=== PATIENT | male | born 1955 | race Caucasian/White ===

== ENCOUNTER 2018-02-02 08:51 | Emergency (ER) | payer OTHER ==
[2018-02-02 09:49] LABS: BASOPHILS # (AUTO) 0.1 10^3/uL (0.0-0.1); BASOPHILS % (AUTO) 1.2 %; EOSINOPHILS # (AUTO) 0.2 10^3/uL (0.0-0.7); EOSINOPHILS % (AUTO) 3.5 %; HGB - HEMOGLOBIN 14.7 g/dL (14.0-18.0); LYMPHOCYTES # (AUTO) 1.1 10^3/uL (1.5-3.5); LYMPHOCYTES % (AUTO) 18.2 %; MEAN CORPUSCULAR HGB CONC 34.7 g/dL (32.0-36.0); MEAN CORPUSCULAR VOLUME 89.5 fL (80.0-94.0); MEAN PLATELET VOLUME 7.3 fL (7.4-11.4); MONOCYTES # (AUTO) 0.6 10^3/uL (0.0-1.0); MONOCYTES % (AUTO) 10.5 %; NEUTROPHILS # (AUTO) 3.9 10^3/uL (1.5-6.6); NEUTROPHILS % (AUTO) 66.6 %; PLT - PLATELET COUNT 212 10^3/uL (130-450); RED BLOOD COUNT 4.75 10^6/uL (4.70-6.10); RED CELL DISTRIBUTION WIDTH 13.4 % (12.0-15.0); WHITE BLOOD COUNT 5.9 x10^3/uL (4.8-10.8)
[2018-02-02 10:02] LABS: ALBUMIN 4.2 g/dL (3.2-5.5); ALBUMIN/GLOBULIN RATIO 1.3 (1.0-2.2); CALCIUM 9.1 mg/dL (8.5-10.3); CREATININE 0.8 mg/dL (0.6-1.2); TOTAL PROTEIN 7.5 g/dL (6.7-8.2)
--- NOTE | 2018-02-02 10:04 | XRAY Report ---
Reason: cp Procedure Date: 02/02/2018 Accession Number: [id number] / [id number] Procedure: XR - Chest 1 View X-Ray CPT Code: 25322 FULL RESULT: EXAM: CHEST RADIOGRAPHY EXAM DATE: 02/02/2018 09:42 AM. CLINICAL HISTORY: Rapid heart rate for 5 days, left-sided arm numbness for a day. COMPARISON: None. TECHNIQUE: 1 view. FINDINGS: Lungs/Pleura: No focal opacities evident. No pleural effusion. No pneumothorax. Mediastinum: Within exam limitations, the cardiomediastinal contour is normal. Other: None. IMPRESSION: Normal single view chest. RADIA
[2018-02-02] MEDS ORDERED: SODIUM CHLORIDE 0.9% 1,000 ML IV ONE (10:14)
--- NOTE | 2018-02-02 10:16 | ED Physician Documentation ---
PD HPI CHEST PAIN - Stated complaint Stated Complaint: CP/L ARM NUMBNESS - Chief complaint Chief Complaint: Cardiac - History obtained from History obtained from: Patient - History of Present Illness Timing - onset: How many days ago (5) Timing - onset during: Rest Timing - details: Intermittant Quality: Dull Location: Substernal Associated symptoms: Nausea (Briefly this morning.). No: Shortness of air Similar symptoms before: Has not had sx before - Additional information Additional information: The patient is a 62-year-old male who presents with history of dull anterior chest aching intermittently for the past 5 days. Episodes last for a few minutes at a time, associated with palpitations that he describes as rapid heart rate. He denies associated shortness of breath, vomiting, or diaphoresis. He did have a five-minute episode of nausea this morning associated with his symptoms, and he had a brief episode of numbness in his left elbow. Although he denies diaphoresis, he reports having night sweats. Cardiac risk factors are negative for cigarette smoking, diabetes, hypertension, hyperlipidemia, or family history of early IA. Review of Systems Constitutional: reports: Sweats ("nightsweats"). denies: Fever, Fatigue Eyes: denies: Irritation Ears: denies: Tinnitus/ringing Nose: denies: Congestion Throat: denies: Sore throat Cardiac: reports: Chest pain / pressure, Palpitations Respiratory: denies: Dyspnea, Cough GI: reports: Nausea (Briefly this morning, but not currently.). denies: Abdominal Pain : denies: Dysuria Skin: denies: Rash Musculoskeletal: denies: Back pain, Extremity swelling Neurologic: denies: Focal weakness, Numbness, Headache PD PAST MEDICAL HISTORY - Past Medical History Cardiovascular: None Respiratory: None Neuro: None Endocrine/Autoimmune: None - Past Surgical History Past Surgical History: No - Present Medications Home Medications: Ambulatory Orders Medication Instructions Recorded Confirmed Aspirin 02/02/18 Multivitamin [Multiple Vitamins] 02/02/18 - Allergies Allergies/Adverse Reactions: Allergies Allergy/AdvReac Type Severity Reaction Status Date / Time No Known Drug Allergies Allergy Verified 02/02/18 08:59 - Social History Does the pt smoke?: No Smoking Status: Never smoker Does the pt drink ETOH?: Yes Does the pt have substance abuse?: No - Immunizations Immunizations are current?: Yes PD ED PE NORMAL - Vitals Vital signs reviewed: Yes (normal) - General General: Alert and oriented X 3, Well developed/nourished - HEENT HEENT: Atraumatic, EOMI, Pharynx benign - Neck Neck: No adenopathy, No JVD - Cardiac Cardiac: RRR, No murmur - Respiratory Respiratory: No respiratory distress, Clear bilaterally - Abdomen Abdomen: Soft, Non tender - Back Back: No CVA TTP - Derm Derm: No rash - Extremities Extremities: No edema, No calf tenderness / cord - Neuro Neuro: Alert and oriented X 3, No motor deficit, No sensory deficit Results - Vitals Vitals: Oxygen O2 Source Room air - EKG (time done) 08:58 Rate: Rate (enter#) (81) Rhythm: NSR [place]: Normal Intervals: Normal AR Ischemia: Q waves (in inferior leads II, III, and aVF, 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.) Compare to prior EKG: Old EKG unavailable - Labs Labs: Laboratory Tests 02/02/18 02/02/18 02/02/18 09:30 09:30 09:30 WBC 5.9 RBC 4.75 Hgb 14.7 Hct 42.5 MCV 89.5 MCH 31.0 MCHC 34.7 RDW 13.4 Plt Count 212 MPV 7.3 L Neut # (Auto) 3.9 Lymph # (Auto) 1.1 L [place] # (Auto) 0.6 Eos # (Auto) 0.2 Baso # (Auto) 0.1 Absolute Nucleated RBC 0.00 Nucleated RBC % 0.0 Sodium 138 Potassium 3.5 Chloride 103 Carbon Dioxide 28 Anion Gap 7.0 BUN 13 Creatinine 0.8 Estimated GFR (MDRD) 98 Glucose 93 Calcium 9.1 Total Bilirubin 1.0 AST 31 ALT 31 Alkaline Phosphatase 50 Troponin I < 0.04 Total Protein 7.5 Albumin 4.2 Globulin 3.3 Albumin/Globulin Ratio 1.3 Lipase 29 TSH 02/02/18 09:30 WBC RBC Hgb Hct MCV MCH MCHC RDW Plt Count MPV Neut # (Auto) Lymph # (Auto) [place] # (Auto) Eos # (Auto) Baso # (Auto) Absolute Nucleated RBC Nucleated RBC % Sodium Potassium Chloride Carbon Dioxide Anion Gap BUN Creatinine Estimated GFR (MDRD) Glucose Calcium Total Bilirubin AST ALT Alkaline Phosphatase Troponin I Total Protein Albumin Globulin Albumin/Globulin Ratio Lipase TSH 3.88 - Rads (name of study) CXR Radiology: Prelim report reviewed, EMP read contemporaneously, See rad report (Normal single view chest.) PD MEDICAL DECISION MAKING - ED course Complexity details: reviewed results, re-evaluated patient, considered differential, d/w patient, d/w family ED course: The patient's presentation is suspicious for intermittent tachycardia, although there is no rhythm disturbance noted on cardiac monitoring while in the emergency department. Ischemic heart disease is considered, but his presentation would be atypical for that diagnosis. There is no clinical evidence to suggest pulmonary etiology, such as congestive heart failure, pneumonia, or pulmonary embolus. Electrocardiogram, chest x-ray, and chemistry panel, including troponin and TSH, are all unremarkable. Treatment in the emergency department included administration of normal saline 1 L IV. The patient remained asymptomatic while in the emergency department. I discussed with him and his son the results of his workup, the importance of outpatient follow-up, as well as potentially worrisome signs or symptoms that should prompt reevaluation in the emergency department. I discussed with him the possibility of a outpatient cardiac monitoring device that he may consider discussing with primary physician. Departure - Departure Disposition: 01 Home, Self Care Clinical Impression: Atypical chest pain, Heart palpitations Condition: Stable Instructions: ED Chest Pain Atypical Unkn Cause, ED Palpitations Follow-Up: CYNDI SANCHEZ MD [Primary Care Provider] - Comments: Follow-up with your primary physician within 1-2 weeks. Call to schedule appointment. You may want to discuss outpatient cardiac monitoring. Return to the emergency department if you develop recurrent or increasing chest pain, shortness of breath, or otherwise worsening symptoms. Discharge Date/Time: 02/02/18 13:35
[2018-02-02 13:35] VITALS: BP 122/86
== END 2018-02-02 13:35 | disposition home or self-care (01) ==
LOC: ED 08:51
DX: R07.89 Other chest pain (principal); R00.2 Palpitations
CPT/HCPCS: 36415; 71045; 80053; 83690; 84443; 84484; 85025; 93005; 96360; 96361; 99284

== ENCOUNTER 2020-10-27 12:16 | Outpatient (CLI) | payer MEDICARE, OTHER | END 2020-10-27 23:59 | disposition home or self-care (01) | LOC: LAB.N 12:16 | PROVIDERS: ATTEND Physician Assistant Medical | DX: R10.0 Acute abdomen (principal) | CPT/HCPCS: 87086 ==

== ENCOUNTER 2020-10-27 14:08 | Emergency (ER) | payer MEDICARE, OTHER ==
[2020-10-27 14:44] LABS: BASOPHILS # (AUTO) 0.1 10^3/uL (0.0-0.1); BASOPHILS % (AUTO) 0.8 %; EOSINOPHILS # (AUTO) 0.1 10^3/uL (0.0-0.7); EOSINOPHILS % (AUTO) 1.3 %; HCT - HEMATOCRIT 44.8 % (42.0-52.0); HGB - HEMOGLOBIN 14.7 g/dL (14.0-18.0); LYMPHOCYTES # (AUTO) 1.6 10^3/uL (1.5-3.5); LYMPHOCYTES % (AUTO) 14.8 %; MEAN CORPUSCULAR HEMOGLOBIN 30.8 pg (27.0-31.0); MEAN CORPUSCULAR HGB CONC 32.8 g/dL (32.0-36.0); MEAN CORPUSCULAR VOLUME 93.7 fL (80.0-94.0); MEAN PLATELET VOLUME 9.1 fL (7.4-11.4); MONOCYTES % (AUTO) 9.5 %; NEUTROPHILS # (AUTO) 7.8 10^3/uL (1.5-6.6); NEUTROPHILS % (AUTO) 73.3 %; PLT - PLATELET COUNT 214 10^3/uL (130-450); RED BLOOD COUNT 4.78 10^6/uL (4.70-6.10); RED CELL DISTRIBUTION WIDTH 12.6 % (12.0-15.0); WHITE BLOOD COUNT 10.6 x10^3/uL (4.8-10.8)
[2020-10-27 14:59] LABS: ALBUMIN 4.5 g/dL (3.2-5.5); ALBUMIN/GLOBULIN RATIO 1.3 (1.0-2.2); BILIRUBIN,TOTAL 0.7 mg/dL (0.2-1.0); CALCIUM 9.6 mg/dL (8.5-10.3); CREATININE 0.8 mg/dL (0.6-1.2); POTASSIUM 4.4 mmol/L (3.5-5.0); TOTAL PROTEIN 8.1 g/dL (6.7-8.2)
--- NOTE | 2020-10-27 17:15 | ED Physician Documentation ---
PD HPI ABD PAIN - Stated complaint Stated Complaint: ABD PX - Chief complaint Chief Complaint: Abd Pain - History obtained from History obtained from: Patient - History of Present Illness Timing - onset: How many days ago (6) Timing - duration: Days (6) - Additional information Additional information: Patient is a 65-year-old male who presents to the emergency department suprapubic pain for the past 6 days. Feels better after urination, worse when he has to urinate. No fevers. No chills. No nausea or vomiting. He went to the walk-in clinic today and was told that there was blood in his urine and they sent him here for evaluation. Patient is currently asymptomatic. No history of renal stones. Review of Systems Constitutional: denies: Fever, Chills Nose: denies: Rhinorrhea / runny nose, Congestion Throat: denies: Sore throat GI: denies: Vomiting, Diarrhea, Hematemesis, Bloody / black stool Skin: denies: Rash Musculoskeletal: denies: Neck pain, Back pain Neurologic: denies: Headache PD PAST MEDICAL HISTORY - Past Medical History Past Medical History: Yes Cardiovascular: None Respiratory: None Neuro: None Endocrine/Autoimmune: None GI: None : None HEENT: None Psych: None Musculoskeletal: None Derm: Psoriasis - Past Surgical History Past Surgical History: No - Present Medications Home Medications: Ambulatory Orders Medication Instructions Recorded Confirmed Multivitamin [Multiple Vitamins] 1 tab ORAL DAILY 02/02/18 10/27/20 Amox/Clav 875/125 [Augmentin] 1 each PO Q8H #30 tablet 10/27/20 Aspirin EC [Ecotrin] 81 mg PO DAILY 10/27/20 10/27/20 Ferrous Sulfate 325 mg PO DAILY 10/27/20 10/27/20 - Allergies Allergies/Adverse Reactions: Allergies Allergy/AdvReac Type Severity Reaction Status Date / Time No Known Drug Allergies Allergy Verified 10/27/20 14:30 - Social History Does the pt smoke?: No Smoking Status: Never smoker Does the pt drink ETOH?: Yes Does the pt have substance abuse?: No - Immunizations Immunizations are current?: Yes PD ED PE NORMAL - Vitals Vital signs reviewed: Yes - General General: Alert and oriented X 3, No acute distress - HEENT HEENT: Moist mucous membranes - Neck Neck: Supple, no meningeal sign - Cardiac Cardiac: RRR - Respiratory Respiratory: No respiratory distress, Clear bilaterally - Abdomen Abdomen: Soft, Non distended, Other (Mild tenderness palpation suprapubic without peritoneal signs) - Derm Derm: Warm and dry - Extremities Extremities: No edema - Neuro Neuro: Alert and oriented X 3 Results - Vitals Vitals: Vital Signs - 24 hr 10/27/20 10/27/20 10/27/20 14:27 16:59 18:13 Temperature 36.9 C Heart Rate 97 88 90 Respiratory 16 16 16 Rate Blood Pressure 136/88 H 132/85 H 124/83 H O2 Saturation 100 99 98 Oxygen O2 Source Room air - Labs Labs: Laboratory Tests 10/27/20 10/27/20 10/27/20 14:38 14:38 17:15 WBC 10.6 RBC 4.78 Hgb 14.7 Hct 44.8 MCV 93.7 MCH 30.8 MCHC 32.8 RDW 12.6 Plt Count 214 MPV 9.1 Neut # (Auto) 7.8 H Lymph # (Auto) 1.6 [place] # (Auto) 1.0 Eos # (Auto) 0.1 Baso # (Auto) 0.1 Absolute Nucleated RBC 0.00 Nucleated RBC % 0.0 Sodium 142 Potassium 4.4 Chloride 106 Carbon Dioxide 26 Anion Gap 10.0 BUN 13 Creatinine 0.8 Estimated GFR (MDRD) 97 Glucose 104 H Calcium 9.6 Total Bilirubin 0.7 AST 25 ALT 25 Alkaline Phosphatase 49 Total Protein 8.1 Albumin 4.5 Globulin 3.6 Albumin/Globulin Ratio 1.3 Lipase 35 Urine Color YELLOW Urine Clarity CLEAR Urine pH 6.0 Ur Specific [place] >=1.030 H Urine Protein NEGATIVE Urine Glucose (UA) NEGATIVE Urine Ketones NEGATIVE Urine Occult Blood NEGATIVE Urine Nitrite NEGATIVE Urine Bilirubin NEGATIVE Urine Urobilinogen 0.2 (NORMAL) Ur Leukocyte Esterase NEGATIVE Ur Microscopic Review NOT INDICATED Urine Culture Comments NOT INDICATED - Rads (name of study) Abdomen pelvis CT Radiology: Final report received, EMP read contemporaneously, See rad report (Uncomplicated diverticulitis) PD MEDICAL DECISION MAKING - ED course Complexity details: reviewed results, re-evaluated patient, considered differential, d/w patient ED course: Patient with uncomplicated diverticulitis. No perforation or abscess. Will place on antibiotics for home. Risk and benefit of antibiotic's were told to the patient as well as possibility that diverticulitis can improve without antibiotic treatment. Patient elects antibiotics. Patient counseled regarding signs and symptoms for which I believe and urgent re-evaluation would be necessary. Patient with good understanding of and agreement to plan and is comfortable going home at this time This document was made in part using voice recognition software. While efforts are made to proofread this document, sound alike and grammatical errors may occur. Departure - Departure Disposition: 01 Home, Self Care Clinical Impression: Diverticulitis Condition: Good Instructions: ED Diverticulitis Follow-Up: Sheri Franklin DO [Primary Care Provider] - Within 1 week Prescriptions: Amox/Clav 875/125 [Augmentin] 1 each PO Q8H #30 tablet Comments: Take all antibiotics until gone. Follow-up with your doctor for further care. If you have not had a colonoscopy, you should have one after completion of treatment. Your prescriptions were sent to the [facility]. Discharge Date/Time: 10/27/20 18:22
[2020-10-27 17:23] LABS: BILIRUBIN,URINE NEGATIVE (NEGATIVE); GLUCOSE, URINE (UA) NEGATIVE (NEGATIVE); KETONES,URINE (UA) NEGATIVE (NEGATIVE); LEUKOCYTE ESTERASE, URINE NEGATIVE (NEGATIVE); NITRITE,URINE NEGATIVE (NEGATIVE); OCCULT BLOOD,URINE NEGATIVE (NEGATIVE); PROTEIN,URINE NEGATIVE (NEGATIVE); UROBILINOGEN,URINE 0.2 (NORMAL) E.U./dL (NORMAL)
[2020-10-27 17:25] LABS: CLARITY,URINE CLEAR (CLEAR)
[2020-10-27] MEDS ORDERED: AMOX/CLAV 875 MG/125 MG TABLET PO STA (17:56)
--- NOTE | 2020-10-27 18:01 | CT Report ---
PROCEDURE: Abdomen/Pelvis WO INDICATIONS: hematuria, abd pain TECHNIQUE: Noncontrast 5 mm thick sections acquired from the diaphragms to the symphysis. 5 mm coronal and sagi ttal reformats were then performed. For radiation dose reduction, the following was used: automated exposure control, adjustment of mA and/or kV according to patient size. COMPARISON: None. FINDINGS: Image quality: Excellent. ABDOMEN: Lung bases: Lung bases are clear. Heart size is normal. Solid organs: Liver and spleen are normal in size. Gallbladder is unremarkable. Pancreas is normal in contours. No adrenal nodules. Kidneys are normal in size, without hydronephrosis or nephrolithi asis. Peritoneum and bowel: Diverticulosis. Inflammatory change surrounding the sigmoid colon, mild to mode rate in severity, (3/116). No free air. No abscess. Normal appendix. No small bowel obstruction. No ascites or pneumoperitoneum. Nodes and vessels: No retroperitoneal or mesenteric adenopathy by size criteria. Aorta and inferior vena cava are normal in caliber. Miscellaneous: No ventral hernias. PELVIS: Genitourinary: Bladder wall thickness is normal. Miscellaneous: No definite inguinal hernias or adenopathy. Bones: No suspicious bony lesions. No vertebral body compression fractures. IMPRESSION: 1. Sigmoid colon diverticulitis. No abscess. 2. No kidney stones. No hydronephrosis. Results were communicated to Dr. Nitish Restrepo at 10/27/2020 4:58 PM [facility]. Reviewed by: Harry Headley MD on 10/27/2020 5:00 PM [facility] Approved by: Harry Headley MD on 10/27/2020 5:00 PM [facility] Station ID: [id number]
[2020-10-27 18:16] VITALS: BP 124/83
== END 2020-10-27 18:22 | disposition home or self-care (01) ==
LOC: ED 14:08
DX: K57.32 Diverticulitis of large intestine without perforation or abscess without bleeding (principal); R10.0 Acute abdomen
CPT/HCPCS: 36415; 74176; 80053; 81003; 83690; 85025; 87086; 99284; A9270; 81001

== ENCOUNTER 2021-03-09 09:31 | Day surgery (SDC) | payer MEDICARE, OTHER ==
[2021-03-09] MEDS ORDERED: LACTATED RINGERS 1,000 ML IV ONE ×2 (09:55→11:40)
--- NOTE | 2021-03-09 10:16 | ANESTHESIA ---
Pre-Anesthesia VS, & Labs - Diagnosis screening - Procedure colonoscopy Vital Signs: Temp Pulse Resp BP Pulse Ox 36.4 C L 76 15 120/88 H 99 03/09/21 09:46 03/09/21 09:46 03/09/21 09:46 03/09/21 09:46 03/09/21 09:46 Height: 5 ft 9 in Weight (kg): 80 kg Body Mass Index: 26.0 BMI Classification: Overweight - NPO >8 hours - Lab Results Lab results reviewed: Yes Home Medications and Allergies Multivitamin [Multiple Vitamins] 1 tab ORAL DAILY 02/02/18 Aspirin EC [Ecotrin] 81 mg PO DAILY 10/27/20 Ferrous Sulfate 325 mg PO DAILY 10/27/20 Allergies/Adverse Reactions: Allergies Allergy/AdvReac Type Severity Reaction Status Date / Time No Known Drug Allergies Allergy Verified 10/27/20 14:30 Anes History & Medical History - Anesthetic History Anesthesia Complications: reports: No previous complications Family history of Anesthesia Complications: Denies Family history of Malignant Hyperthermia: Denies - Medical History Cardiovascular: reports: None Pulmonary: reports: None Neuro: reports: None Endocrine/Autoimmune: reports: None Smoking Status: Never smoker - Surgical History General: reports: Colonoscopy Exam General: Alert, Oriented x3, Cooperative, No acute distress Dental: WNL Mouth Openin Fingerbreadth Neck Mobility: Normal Mallampati classification: I Plan Anesthesia Type: General, Total IV Consent for Procedure(s) Verified and Reviewed: Yes Code Status: Attempt Resuscitation ASA classification: 1-Healthy patient Is this case an emergency?: No
[2021-03-09] MEDS ORDERED: PROPOFOL 500 MG/50 ML 500 MG/50 ML VIAL ONE (10:53)
[2021-03-09 12:00] VITALS: BP 101/68
--- NOTE | 2021-03-09 14:36 | ANESTHESIA POST OP EVALUATION ---
Anesthesia Post Eval - Post Anesthesia Eval Vitals: Last Vital Signs Temp 36.6 C 03/09/21 12:00 Pulse 66 03/09/21 12:00 Resp 18 03/09/21 12:00 BP 101/68 03/09/21 12:00 Pulse Ox 98 03/09/21 12:00 CV Function Including HR & BP: Stable Pain Control: Satisfactory Nausea & Vomiting: Negative Mental Status: Baseline Respiratory Status: Airway Patent Hydration Status: Satisfactory Anesthesia Complications: None
== END 2021-03-09 09:32 | disposition home or self-care (01) ==
LOC: SDS 09:31
PROVIDERS: ATTEND Surgery
DX: Z12.11 Encounter for screening for malignant neoplasm of colon (principal); J45.998 Other asthma; K57.30 Diverticulosis of large intestine without perforation or abscess without bleeding; K64.4 Residual hemorrhoidal skin tags
CPT/HCPCS: 81599; 83630; 87015; 87177; 87209; 87272; 87329; 87493; G0121; J7120; 87045; 87046

== ENCOUNTER 2022-03-22 08:54 | Emergency (ER) | payer MEDICARE, OTHER ==
[2022-03-22] MEDS ORDERED: SODIUM CHLORIDE 0.9% 1,000 ML IV STA (09:34)
[2022-03-22 09:39] LABS: BASOPHILS # (AUTO) 0.1 10^3/uL (0.0-0.1); EOSINOPHILS # (AUTO) 0.1 10^3/uL (0.0-0.7); EOSINOPHILS % (AUTO) 2.3 %; HCT - HEMATOCRIT 46.3 % (42.0-52.0); HGB - HEMOGLOBIN 15.6 g/dL (14.0-18.0); LYMPHOCYTES # (AUTO) 1.3 10^3/uL (1.5-3.5); LYMPHOCYTES % (AUTO) 21.9 %; MEAN CORPUSCULAR HEMOGLOBIN 30.7 pg (27.0-31.0); MEAN CORPUSCULAR HGB CONC 33.7 g/dL (32.0-36.0); MEAN CORPUSCULAR VOLUME 91.1 fL (80.0-94.0); MEAN PLATELET VOLUME 9.1 fL (7.4-11.4); MONOCYTES # (AUTO) 0.6 10^3/uL (0.0-1.0); MONOCYTES % (AUTO) 9.7 %; NEUTROPHILS # (AUTO) 3.7 10^3/uL (1.5-6.6); NEUTROPHILS % (AUTO) 64.9 %; PLT - PLATELET COUNT 238 10^3/uL (130-450); RED BLOOD COUNT 5.08 10^6/uL (4.70-6.10); RED CELL DISTRIBUTION WIDTH 12.2 % (12.0-15.0); WHITE BLOOD COUNT 5.8 x10^3/uL (4.8-10.8)
--- OUTSIDE RECORDS SUMMARY | 2022-03-22 09:41 | EXTERNAL MEDICAL SUMMARY RPT | Continuity of Care Document ---
:1955 Author Organization [employer] Address [address] [place] [address] Phone Care Team Providers Name Role Phone Unavailable Unavailable Unavailable Flavio Process Development Manager Enp, Michelle Unavailable Unavailable Rufus Patient Registrar, Michelle Unavailable Unavailab le Allergies No information. Encounters No information. Functional Status No information. Immunizations No information. Medications date description facility 2022-01-28 00:00 amoxicillin All 2022-01-28 00:00 amoxicillin All 2022-01-28 00:00 amoxicillin All 2022-01-28 00:00 amoxicillin All Problems date description facility 2022-01-28 00:00 Streptococcal sore throat All 2022-01-28 00:00 Strain of neck muscle All 2022-01-28 00:00 Strain of neck muscle All 2022-01-28 00:00 Tinnitus, unspecified All 2022-01-28 00:00 Tinnitus, unspecified All 2022-01-28 00:00 Tinnitus All 2022-01-28 00:00 Tinnitus All 2022-01-28 00:00 Other abnormal blood chemistry All 2022-01-28 00:00 Other abnormal blood chemistry All 2022-01-28 00:00 Hyperglycemia All 2022-01-28 00:00 Hyperglycemia All 2022-01-28 00:00 Neck sprain All 2022-01-28 00:00 Neck sprain All 2022-01-28 00:00 Tinnitus, bilateral All 2022-01-28 00:00 Tinnitus, bilateral All 2022-01-28 00:00 Streptococcal pharyngitis All 2022-01-28 00:00 Strain of muscle, fascia and tendon at neck level All 2022-01-28 00:00 Strain of muscle, fascia and tendon at neck level All 2022-01-28 00:00 Family history of diabetes mellitus Al l 2022-01-28 00:00 Family history of diabetes mellitus Al l 2022-01-31 00:00 Strain of neck muscle All 2022-01-31 00:00 Tinnitus, unspecified All 2022-01-31 00:00 Tinnitus All 2022-01-31 00:00 Other abnormal blood chemistry All 2022-01-31 00:00 Hyperglycemia All 2022-01-31 00:00 Neck sprain All 2022-01-31 00:00 Tinnitus, bilateral All 2022-01-31 00:00 Strain of muscle, fascia and tendon at neck level All 2022-01-31 00:00 Family history of diabetes mellitus Al l Procedures date description facility 2022-01-28 00:00 Visit Code Hold All 2022-01-28 00:00 POC STREP TEST All Results/Labs test date author facility value unit interpret ation Result panel 1 (unknown) (no date) (unknown) All (no value) (units unknown ) (unknown) Result panel 2 (unknown) (no date) (unknown) All (no value) (units unknown ) (unknown) Social History date description facility 2022-01-28 00:00 Never smoker All Vital Signs date measurement value units 2022-01-28 00:00 BMI 26.59 kg/m2 2022-01-28 00:00 BP_diastolic 87 mmHg 2022-01-28 00:00 BP_systolic 130 mmHg 2022-01-28 00:00 heart_rate 90 /min 2022-01-28 00:00 height_metric 176.53 cm 2022-01-28 00:00 height_standard 69.5 in 2022-01-28 00:00 respiration_rate 16 /min 2022-01-28 00:00 temperature_metric 36.72 C 2022-01-28 00:00 temperature_standard 98.1 F 2022-01-28 00:00 weight_metric 82.55 kg 2022-01-28 00:00 weight_standard 182 lb
--- NOTE | 2022-03-22 09:52 | XRAY Report ---
PROCEDURE: Chest 1 View X-Ray INDICATIONS: CP TECHNIQUE: One view of the chest was acquired. COMPARISON: None. FINDINGS: Surgical changes and devices: None. Lungs and pleura: No pleural effusions or pneumothorax. Lungs are clear. Mediastinum: Mediastinal contours appear normal. Heart size is normal. Bones and chest wall: No suspicious bony lesions. Overlying soft tissues appear unremarkable. IMPRESSION: No acute cardiopulmonary abnormality Reviewed by: Jorje Florence on 03/22/2022 9:50 AM [facility] Approved by: Jorje Florence on 03/22/2022 9:50 AM [facility] Station ID: [id number]
[2022-03-22 09:54] LABS: ALBUMIN 4.4 g/dL (3.2-5.5); ALBUMIN/GLOBULIN RATIO 1.2 (1.0-2.2); BILIRUBIN,TOTAL 0.7 mg/dL (0.2-1.0); CALCIUM 10.2 mg/dL (8.5-10.3); CREATININE 0.8 mg/dL (0.6-1.2); POTASSIUM 3.9 mmol/L (3.5-5.0); TOTAL PROTEIN 8.1 g/dL (6.7-8.2)
--- NOTE | 2022-03-22 10:01 | ED Physician Documentation ---
PD HPI CHEST PAIN - Stated complaint Stated Complaint: RAPID HR - Chief complaint Chief Complaint: Cardiac - History obtained from History obtained from: Patient - Additional information Additional information: Patient is a 66-year-old male presenting for evaluation of feeling heart palpitations and this morning feels a dull feeling in his chest. For the last 3 nights he reports waking up in sweats and noticing that his heart beat is elevated. He also reports an associated dull feeling in his chest and at times a twinge of discomfort but does not want to call it a pain. There is no radiation to his extremities, back or jaw of any symptoms. He denies feeling short of breath.He denies dizziness or headache. He denies abdominal pain, vomiting or diarrhea. He was recently treated for strep infection. He does have a history of psoriasis and states that it has worsened over the last week.He does not take anything for his psoriasis. He denies a history of hypertension, diabetes, hyperlipidemia, family history of early coronary artery disease. He has been seen by hull drafter in the past for palpitations with negative work-ups. He denies recent unintentional weight loss or gain, fat igue.No fevers. Review of Systems Constitutional: denies: Fever Cardiac: reports: Chest pain / pressure, Palpitations Respiratory: denies: Dyspnea GI: denies: Abdominal Pain Skin: reports: Rash Musculoskeletal: denies: Back pain Neurologic: denies: Headache PD PAST MEDICAL HISTORY - Past Medical History Past Medical History: No Cardiovascular: None Respiratory: None Neuro: None Endocrine/Autoimmune: None - Past Surgical History Past Surgical History: No General: Colonoscopy - Present Medications Home Medications: Ambulatory Orders Medication Instructions Recorded Confirmed Multivitamin [Multiple Vitamins] 1 tab ORAL DAILY 02/02/18 03/22/22 Aspirin EC [Ecotrin] 81 mg PO DAILY 10/27/20 03/22/22 Ferrous Sulfate 325 mg PO DAILY 10/27/20 03/22/22 Cholecalciferol (Vitamin D3) 50,000 unit PO DAILY 03/22/22 03/22/22 [Vitamin D] Magnesium Chloride [Magnesium] 64 mg PO DAILY 03/22/22 03/22/22 Potassium Chloride [Klor-Con 8] 8 meq PO DAILY 03/22/22 03/22/22 - Allergies Allergies/Adverse Reactions: Allergies Allergy/AdvReac Type Severity Reaction Status Date / Time No Known Drug Allergies Allergy Verified 02/07/23 09:03 - Social History Does the pt smoke?: No Smoking Status: Never smoker Does the pt drink ETOH?: Yes Does the pt have substance abuse?: No - Immunizations Immunizations are current?: Yes PD ED PE NORMAL - General General: Alert and oriented X 3, No acute distress, Well developed/nourished - HEENT HEENT: Atraumatic - Neck Neck: Supple, no meningeal sign - Cardiac Cardiac: RRR, No murmur, Strong equal pulses - Respiratory Respiratory: No respiratory distress, Clear bilaterally - Abdomen Abdomen: Soft, Non tender, Non distended - Derm Derm: Other (Psoriatic rash to bilateral knees, elbows) - Extremities Extremities: No edema, No calf tenderness / cord - Neuro Neuro: Alert and oriented X 3, No motor deficit, Normal speech Results - Vitals Vitals: Vital Signs - 24 hr 03/22/22 03/22/22 03/22/22 08:57 09:22 10:13 Temperature 36.6 C Heart Rate 92 101 H 80 Respiratory 16 14 20 Rate Blood Pressure 155/88 H 136/100 H 128/87 H O2 Saturation 98 98 98 03/22/22 03/22/22 03/22/22 10:30 11:00 11:30 Temperature Heart Rate 77 77 76 Respiratory 17 18 15 Rate Blood Pressure 115/87 H 123/87 H 119/87 H O2 Saturation 99 99 99 03/22/22 03/22/22 12:14 12:38 Temperature Heart Rate 55 L 81 Respiratory 16 15 Rate Blood Pressure 126/88 H O2 Saturation 98 99 Oxygen O2 Source Room air - EKG (time done) 0930 Rate: Rate (enter#) (87) Rhythm: NSR Intervals: No: Prolonged QT Ischemia: No: ST elevation c/w ischemia - Labs Labs: Laboratory Tests 03/22/22 03/22/22 03/22/22 09:07 09:20 09:20 WBC 5.8 RBC 5.08 Hgb 15.6 Hct 46.3 MCV 91.1 MCH 30.7 MCHC 33.7 RDW 12.2 Plt Count 238 MPV 9.1 Neut # (Auto) 3.7 Lymph # (Auto) 1.3 L [place] # (Auto) 0.6 Eos # (Auto) 0.1 Baso # (Auto) 0.1 Absolute Nucleated RBC 0.00 Nucleated RBC % 0.0 Sodium 141 Potassium 3.9 Chloride 103 Carbon Dioxide 24 Anion Gap 14.0 H BUN 15 Creatinine 0.8 Estimated GFR (MDRD) 97 Glucose 131 H Calcium 10.2 Total Bilirubin 0.7 AST 32 ALT 30 Alkaline Phosphatase 45 Troponin I High Sens Total Protein 8.1 Albumin 4.4 Globulin 3.7 Albumin/Globulin Ratio 1.2 Lipase 39 TSH 4.27 03/22/22 09:20 WBC RBC Hgb Hct MCV MCH MCHC RDW Plt Count MPV Neut # (Auto) Lymph # (Auto) [place] # (Auto) Eos # (Auto) Baso # (Auto) Absolute Nucleated RBC Nucleated RBC % Sodium Potassium Chloride Carbon Dioxide Anion Gap BUN Creatinine Estimated GFR (MDRD) Glucose Calcium Total Bilirubin AST ALT Alkaline Phosphatase Troponin I High Sens 2.7 Total Protein Albumin Globulin Albumin/Globulin Ratio Lipase TSH PD Medical Decision Making - ED course Complexity details: reviewed results, re-evaluated patient, d/w patient ED course: Patient is a 66-year-old male presenting for evaluation of palpitations and dull chest discomfort. His symptoms have been ongoing for at least 4 hours. There is no exertional component to his symptoms. His EKG demonstrates a normal sinus rhythm.His labs were reviewed and without significant findings including a negative troponin and normal TSH. His chest x-ray which I also reviewed shows a normal heart size and no signs of pneumonia, pneumothorax or pleural effusion.He has been symptom-free here. He does not have any known risk factors for aortic dissection or pulmonary embolism.ACS also seems less likely given the duration of his symptoms and a negative troponin and EKG without signs of acute ischemia. Patient has seen cardiology in the past for his palpitations. He was encouraged to have close follow-up. He is advised on concerning symptoms to return for. Departure - Departure Disposition: 01 Home, Self Care Clinical Impression: Chest pain, Heart palpitations Condition: Stable Instructions: ED Chest Pain Atypical Unkn Cause, ED Palpitations Comments: You were evaluated for chest pain and heart palpitations. Your EKG shows a normal rhythm here and your cardiac marker is normal. Your chest x-ray is also clear. At this time the exact cause of your symptoms is unclear but you should have close follow-up with your primary care doctor and [facility] [facility]. Please make sure you are staying hydrated. If you have any worsening symptoms such as recurrence of your chest pain or any new symptoms please return to the emergency department. Discharge Date/Time: 03/22/22 12:48
[2022-03-22 12:39] VITALS: BP 126/88
== END 2022-03-22 12:48 | disposition home or self-care (01) ==
LOC: ED 08:54
DX: R00.2 Palpitations (principal); R07.9 Chest pain, unspecified; Z79.82 Long term (current) use of aspirin
CPT/HCPCS: 36415; 80053; 83690; 84443; 84484; 85025; 93005; 96360; 96361; 99284

== ENCOUNTER 2022-07-12 14:07 | Emergency (ER) | payer MEDICARE, OTHER ==
--- OUTSIDE RECORDS SUMMARY | 2022-07-12 14:18 | EXTERNAL MEDICAL SUMMARY RPT | Continuity of Care Document ---
Author Name Unknown Address [address] [place] [address] Phone Organization [place] Address [address] [place] [address] Phone Care Team Providers Care Able Bodied Watchman Name Role Phone Julian Lyn Unavailable Unavailable Medications date description facility 2022-07-10 00:00 [facility] Problems date description facility 2022-07-10 10:12 Supraventricular tachycardia Is [facility] Results/Labs test date author facility value unit interpretation Result panel 1 (unknown) (no date) (unknown) (unknown) (no value) (units unknown) (unknown) (unknown) (no date) (unknown) (unknown) 07/10/22 (units unknown) (unknown) (unknown) (no date) (unknown) (unknown) 10:29 (units unknown) (unknown) (unknown) (no date) (unknown) (unknown) [id number] (units unknown) (unknown) (unknown) (no date) (unknown) (unknown) Age/Sex: 66 / M Date of Service: (units unknown) (unknown) (unknown) (no date) (unknown) (unknown) Allergies (units unknown) (unknown) (unknown) (no date) (unknown) (unknown) [facility] Medicine (units unknown) (unknown) (unknown) (no date) (unknown) (unknown) [place] [address] (units unknown) (unknown) (unknown) (no date) (unknown) (unknown) Attending Dr: Julian Lyn DIsabelaOIsabela (units unknown) (unknown) (unknown) (no date) (unknown) (unknown) BMI 26.1 (units unknown) (unknown) (unknown) (no date) (unknown) (unknown) BP 130/80 (units unknown) (unknown) (unknown) (no date) (unknown) (unknown) Blood Pressure Location Rt brachial (units unknown) (unknown) (unknown) (no date) (unknown) (unknown) : 6 Acct:[id number] (units unknown) (unknown) (unknown) (no date) (unknown) (unknown) Dept at . (units unknown) (unknown) (unknown) (no date) (unknown) (unknown) Documented By: Julian Lyn 07/10/22 1022 (units unknown) (unknown) (unknown) (no date) (unknown) (unknown) Draft (units unknown) (unknown) (unknown) (no date) (unknown) (unknown) Height 5 ft 9 in (un its unknown) (unknown) (unknown) (no date) (unknown) (unknown) Intake Note: (units unknown) (unknown) (unknown) (no date) (unknown) (unknown) Intake perform ed by: Linh Connelly (units unknown) (unknown) (unknown) (no date) (unknown) (unknown) Intake (units unknown) (unknown) (unknown) (no date) (unknown) (unknown) Intake- Donald randall Staff (units unknown) (unknown) (unknown) (no date) (unknown) (unknown) Loc: [facility] (units unknown) (unknown) (unknown) (no date) (unknown) (unknown) No Known Drug Allergies Allergy (Unverified 07/10/22 10:23) (units unknown) (unknown) (unknown) (no date) (unknown) (unknown) Oxygen Deliver y Method room air (units unknown) (unknown) (unknown) (no date) (unknown) (unknown) PFSH (units unknown) (unknown) (unknown) (no date) (unknown) (unknown) Patient: Kenn Moreno MR#: [id number] (units unknown) (unknown) (unknown) (no date) (unknown) (unknown) Position Sitting (un its unknown) (unknown) (unknown) (no date) (unknown) (unknown) Pulse 75 (units unknown) (unknown) (unknown) (no date) (unknown) (unknown) Pulse Oximetry (%) 97 (units unknown) (unknown) (unknown) (no date) (unknown) (unknown) Pulse Source Monitor (units unknown) (unknown) (unknown) (no date) (unknown) (unknown) Reason For Visit (un its unknown) (unknown) (unknown) (no date) (unknown) (unknown) Respiration 16 (unit s unknown) (unknown) (unknown) (no date) (unknown) (unknown) Signed By: (units unknown) (unknown) (unknown) (no date) (unknown) (unknown) Smoking Status : Smoker, status unknown (units unknown) (unknown) (unknown) (no date) (unknown) (unknown) Temp 98 F (units unknown) (unknown) (unknown) (no date) (unknown) (unknown) Temp Source Te mporal Artery Scan (units unknown) (unknown) (unknown) (no date) (unknown) (unknown) This note may have been all or partially generated using voice recognition (units unknown) (unknown) (unknown) (no date) (unknown) (unknown) Tobacco + Subs tance Use (units unknown) (unknown) (unknown) (no date) (unknown) (unknown) Tobacco Status (unit s unknown) (unknown) (unknown) (no date) (unknown) (unknown) 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 If there are any questions, please contact the Medical Records (units unknown) (unknown) (unknown) (no date) (unknown) (unknown) may occur. Occasional wrong-word or 'sound-alike' substitutions may have (units unknown) (unknown) (unknown) (no date) (unknown) (unknown) occurred due t o the inherent limitations of voice recognition software. Please (units unknown) (unknown) (unknown) (no date) (unknown) (unknown) pt arrives to [facility] c/o S/T and exposure from grandson a few days back, along with (units unknown) (unknown) (unknown) (no date) (unknown) (unknown) read the note carefully and recognize, using context, where these substitutions (units unknown) (unknown) (unknown) (no date) (unknown) (unknown) software. Alth ough every effort is made to edit content, personnel interviewer errors (units unknown) (unknown) Result panel 2 (unknown) (no date) (unknown) (unknown) (no value) (units unknown) (unknown) (unknown) (no date) (unknown) (unknown) 07/10/22 (units unknown) (unknown) (unknown) (no date) (unknown) (unknown) 10:29 (units unknown) (unknown) (unknown) (no date) (unknown) (unknown) [id number] (units unknown) (unknown) (unknown) (no date) (unknown) (unknown) Age/Sex: 66 / M Date of Service: (units unknown) (unknown) (unknown) (no date) (unknown) (unknown) Allergies (units unknown) (unknown) (unknown) (no date) (unknown) (unknown) Allergies: Reviewed (units unknown) (unknown) (unknown) (no date) (unknown) (unknown) [facility] Medicine (units unknown) (unknown) (unknown) (no date) (unknown) (unknown) [place] [address] (units unknown) (unknown) (unknown) (no date) (unknown) (unknown) Assessment + Plan (u nits unknown) (unknown) (unknown) (no date) (unknown) (unknown) Attending Dr: Julian BurtonOIsabela (units unknown) (unknown) (unknown) (no date) (unknown) (unknown) BMI 26.1 (units unknown) (unknown) (unknown) (no date) (unknown) (unknown) BP 130/80 (units unknown) (unknown) (unknown) (no date) (unknown) (unknown) Blood Pressure Location Rt brachial (units unknown) (unknown) (unknown) (no date) (unknown) (unknown) Cardiovascular : Negative.? (units unknown) (unknown) (unknown) (no date) (unknown) (unknown) Chief Complain t: white spots on mouth (units unknown) (unknown) (unknown) (no date) (unknown) (unknown) Constitutional : Negative.? (units unknown) (unknown) (unknown) (no date) (unknown) (unknown) : 6 Acct:[id number] (units unknown) (unknown) (unknown) (no date) (unknown) (unknown) Dept at . (units unknown) (unknown) (unknown) (no date) (unknown) (unknown) Documented By: Julian Lyn 07/10/22 1022 (units unknown) (unknown) (unknown) (no date) (unknown) (unknown) Draft (units unknown) (unknown) (unknown) (no date) (unknown) (unknown) Endocrine: Negative.? (units unknown) (unknown) (unknown) (no date) (unknown) (unknown) Gastrointestin al: Negative.? (units unknown) (unknown) (unknown) (no date) (unknown) (unknown) Genitourinary: Negative.? (units unknown) (unknown) (unknown) (no date) (unknown) (unknown) Height 5 ft 9 in (un its unknown) (unknown) (unknown) (no date) (unknown) (unknown) I reviewed the patient's Past Medical History, Problem List, Medications and (units unknown) (unknown) (unknown) (no date) (unknown) (unknown) Intake Note: (units unknown) (unknown) (unknown) (no date) (unknown) (unknown) Intake perform ed by: Linh Connelly (units unknown) (unknown) (unknown) (no date) (unknown) (unknown) Intake (units unknown) (unknown) (unknown) (no date) (unknown) (unknown) Intake- Clinci al Staff (units unknown) (unknown) (unknown) (no date) (unknown) (unknown) Loc: [facility] (units unknown) (unknown) (unknown) (no date) (unknown) (unknown) Medications: Reconciled (units unknown) (unknown) (unknown) (no date) (unknown) (unknown) Neurological: Negative.? (units unknown) (unknown) (unknown) (no date) (unknown) (unknown) No Known Drug Allergies Allergy (Unverified 07/10/22 10:23) (units unknown) (unknown) (unknown) (no date) (unknown) (unknown) Note (units unknown) (unknown) (unknown) (no date) (unknown) (unknown) Note: (units unknown) (unknown) (unknown) (no date) (unknown) (unknown) Notes (units unknown) (unknown) (unknown) (no date) (unknown) (unknown) Objective: (units unknown) (unknown) (unknown) (no date) (unknown) (unknown) Orders (units unknown) (unknown) (unknown) (no date) (unknown) (unknown) Orders: (units unknown) (unknown) (unknown) (no date) (unknown) (unknown) Oxygen Deliver y Method room air (units unknown) (unknown) (unknown) (no date) (unknown) (unknown) PFSH (units unknown) (unknown) (unknown) (no date) (unknown) (unknown) POC Strep scre en Group A Today J02.9 - Acute pharyngitis, unspecified (units unknown) (unknown) (unknown) (no date) (unknown) (unknown) Patient: Kenn Moreno MR#: [id number] (units unknown) (unknown) (unknown) (no date) (unknown) (unknown) Position Sitting (un its unknown) (unknown) (unknown) (no date) (unknown) (unknown) Pulse 75 (units unknown) (unknown) (unknown) (no date) (unknown) (unknown) Pulse Oximetry (%) 97 (units unknown) (unknown) (unknown) (no date) (unknown) (unknown) Pulse Source Monitor (units unknown) (unknown) (unknown) (no date) (unknown) (unknown) Reason For Visit (un its unknown) (unknown) (unknown) (no date) (unknown) (unknown) Respiration 16 (unit s unknown) (unknown) (unknown) (no date) (unknown) (unknown) Respiratory: Negative.? (units unknown) (unknown) (unknown) (no date) (unknown) (unknown) Review of Systems: ( units unknown) (unknown) (unknown) (no date) (unknown) (unknown) Signed By: (units unknown) (unknown) (unknown) (no date) (unknown) (unknown) Smoking Status : Smoker, status unknown (units unknown) (unknown) (unknown) (no date) (unknown) (unknown) Social History (including tobacco use status). (units unknown) (unknown) (unknown) (no date) (unknown) (unknown) Subjective: (units unknown) (unknown) (unknown) (no date) (unknown) (unknown) Temp 98 F (units unknown) (unknown) (unknown) (no date) (unknown) (unknown) Temp Source Te mporal Artery Scan (units unknown) (unknown) (unknown) (no date) (unknown) (unknown) This note may have been all or partially generated using voice recognition (units unknown) (unknown) (unknown) (no date) (unknown) (unknown) Tobacco + Subs tance Use (units unknown) (unknown) (unknown) (no date) (unknown) (unknown) Tobacco Status (unit s unknown) (unknown) (unknown) (no date) (unknown) (unknown) 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 There may be (units unknown) (unknown) (unknown) (no date) (unknown) (unknown) Walk In Clinic Visit (units unknown) (unknown) (unknown) (no date) (unknown) (unknown) Weight 177 lb (units unknown) (unknown) (unknown) (no date) (unknown) (unknown) [] (units unknown) (unknown) (unknown) (no date) (unknown) (unknown) concern for thrush ( units unknown) (unknown) (unknown) (no date) (unknown) (unknown) have occurred. If there are any questions, please contact the Medical Records (units unknown) (unknown) (unknown) (no date) (unknown) (unknown) may occur. Occasional wrong-word or 'sound-alike' substitutions may have (units unknown) (unknown) (unknown) (no date) (unknown) (unknown) occurred due t o the inherent limitations of voice recognition software. Please (units unknown) (unknown) (unknown) (no date) (unknown) (unknown) pt arrives to [facility] c/o S/T and exposure from grandson a few days back, along with (units unknown) (unknown) (unknown) (no date) (unknown) (unknown) read the note carefully and recognize, using context, where these substitutions (units unknown) (unknown) (unknown) (no date) (unknown) (unknown) software. Alth ough every effort is made to edit content, personnel interviewer errors (units unknown) (unknown) (unknown) (no date) (unknown) (unknown) typographical errors as a result. (units unknown) (unknown) Result panel 3 (unknown) (no date) (unknown) (unknown) (no value) (units unknown) (unknown) (unknown) (no date) (unknown) (unknown) (1) Thrush: (units unknown) (unknown) (unknown) (no date) (unknown) (unknown) (2) Diverticulitis: (units unknown) (unknown) (unknown) (no date) (unknown) (unknown) (3) Skin lesion: (un its unknown) (unknown) (unknown) (no date) (unknown) (unknown) - Continue supportive care at home. (units unknown) (unknown) (unknown) (no date) (unknown) (unknown) - We will erich t for presumed thrush at this point. (units unknown) (unknown) (unknown) (no date) (unknown) (unknown) 07/10/22 1048 (units unknown) (unknown) (unknown) (no date) (unknown) (unknown) 07/10/22 (units unknown) (unknown) (unknown) (no date) (unknown) (unknown) 1. Rapid strep is negative. (units unknown) (unknown) (unknown) (no date) (unknown) (unknown) 10:29 (units unknown) (unknown) (unknown) (no date) (unknown) (unknown) 2. He did fini sh a single course of amoxicillin for his diverticulitis. (units unknown) (unknown) (unknown) (no date) (unknown) (unknown) 3 (units unknown) (unknown) (unknown) (no date) (unknown) (unknown) 3. I suspect h e may have a psoriatic component to the thickened skin on his (units unknown) (unknown) (unknown) (no date) (unknown) (unknown) [id number] (units unknown) (unknown) (unknown) (no date) (unknown) (unknown) Age/Sex: 66 / M Date of Service: (units unknown) (unknown) (unknown) (no date) (unknown) (unknown) Allergies (units unknown) (unknown) (unknown) (no date) (unknown) (unknown) Allergies: Reviewed (units unknown) (unknown) (unknown) (no date) (unknown) (unknown) [facility] (units unknown) (unknown) (unknown) (no date) (unknown) (unknown) [place] [id number] (units unknown) (unknown) (unknown) (no date) (unknown) (unknown) Assessment + Plan (u nits unknown) (unknown) (unknown) (no date) (unknown) (unknown) Attending Dr: Julian Lyn DIsabelaOIsabela (units unknown) (unknown) (unknown) (no date) (unknown) (unknown) BMI 26.1 (units unknown) (unknown) (unknown) (no date) (unknown) (unknown) BP 130/80 (units unknown) (unknown) (unknown) (no date) (unknown) (unknown) Blood Pressure Location Rt brachial (units unknown) (unknown) (unknown) (no date) (unknown) (unknown) CARDIAC: Regul ar rate and rhythm. S1, S2 normal, no murmur.? No edema. (units unknown) (unknown) (unknown) (no date) (unknown) (unknown) CHEST: Normal respiratory effort (units unknown) (unknown) (unknown) (no date) (unknown) (unknown) Cardiovascular : Negative.? (units unknown) (unknown) (unknown) (no date) (unknown) (unknown) Chief Complain t: white spots on mouth (units unknown) (unknown) (unknown) (no date) (unknown) (unknown) Constitutional : Negative.? (units unknown) (unknown) (unknown) (no date) (unknown) (unknown) : 6 Acct:[id number] (units unknown) (unknown) (unknown) (no date) (unknown) (unknown) Dept at . (units unknown) (unknown) (unknown) (no date) (unknown) (unknown) Discussed that the new recommendations for diverticulitis treatment is not to (units unknown) (unknown) (unknown) (no date) (unknown) (unknown) Documented By: Julian Lyn 07/10/22 1022 (units unknown) (unknown) (unknown) (no date) (unknown) (unknown) EARS: External exam normal.? Rt + Lt TM pearly with normal light reflex.? (units unknown) (unknown) (unknown) (no date) (unknown) (unknown) EYES: PERRL, E RUBI and nonicteric (units unknown) (unknown) (unknown) (no date) (unknown) (unknown) Endocrine: Negative.? (units unknown) (unknown) (unknown) (no date) (unknown) (unknown) GENERAL: Well developed, well nourished.? Cooperative with exam.? Patient is in (units unknown) (unknown) (unknown) (no date) (unknown) (unknown) Genitourinary: Negative.? (units unknown) (unknown) (unknown) (no date) (unknown) (unknown) HEAD: Atraumat ic, Normocephalic (units unknown) (unknown) (unknown) (no date) (unknown) (unknown) Hearing intact. (uni ts unknown) (unknown) (unknown) (no date) (unknown) (unknown) Height 5 ft 9 in (un its unknown) (unknown) (unknown) (no date) (unknown) (unknown) I reviewed the patient's Past Medical History, Problem List, Medications and (units unknown) (unknown) (unknown) (no date) (unknown) (unknown) Intake Note: (units unknown) (unknown) (unknown) (no date) (unknown) (unknown) Intake perform ed by: Linh Connelly (units unknown) (unknown) (unknown) (no date) (unknown) (unknown) Intake (units unknown) (unknown) (unknown) (no date) (unknown) (unknown) Intake- Donald al Staff (units unknown) (unknown) (unknown) (no date) (unknown) (unknown) LUNGS: Clear a ll lung peña, Bilaterally (units unknown) (unknown) (unknown) (no date) (unknown) (unknown) Loc: [facility] (units unknown) (unknown) (unknown) (no date) (unknown) (unknown) [place] L: Normal gait. (units unknown) (unknown) (unknown) (no date) (unknown) (unknown) Medications: Reconciled (units unknown) (unknown) (unknown) (no date) (unknown) (unknown) Medications: (units unknown) (unknown) (unknown) (no date) (unknown) (unknown) NECK: Full ran ge of motion, positive lymphadenopathy, supple (units unknown) (unknown) (unknown) (no date) (unknown) (unknown) NEURO EXAM: Al ert and oriented x 3.? (units unknown) (unknown) (unknown) (no date) (unknown) (unknown) NOSE: Clear (units unknown) (unknown) (unknown) (no date) (unknown) (unknown) Neurological: Negative.? (units unknown) (unknown) (unknown) (no date) (unknown) (unknown) New (units unknown) (unknown) (unknown) (no date) (unknown) (unknown) No Known Drug Allergies Allergy (Unverified 07/10/22 10:23) (units unknown) (unknown) (unknown) (no date) (unknown) (unknown) Note (units unknown) (unknown) (unknown) (no date) (unknown) (unknown) Note: (units unknown) (unknown) (unknown) (no date) (unknown) (unknown) Notes (units unknown) (unknown) (unknown) (no date) (unknown) (unknown) ORAL:? Tongue is midline.? mild Posterior pharyngeal erythema. No swelling, (units unknown) (unknown) (unknown) (no date) (unknown) (unknown) Objective: (units unknown) (unknown) (unknown) (no date) (unknown) (unknown) Orders (units unknown) (unknown) (unknown) (no date) (unknown) (unknown) Orders: (units unknown) (unknown) (unknown) (no date) (unknown) (unknown) Oxygen Deliver y Method room air (units unknown) (unknown) (unknown) (no date) (unknown) (unknown) PFSH (units unknown) (unknown) (unknown) (no date) (unknown) (unknown) POC Strep A Te st Negative Last Edit by Linh Connelly LPN on 07/10/22 10:4 (units unknown) (unknown) (unknown) (no date) (unknown) (unknown) POC Strep A (units unknown) (unknown) (unknown) (no date) (unknown) (unknown) POC Strep QC L ast Edit by Linh Connelly LPN on 07/10/22 10:43 (units unknown) (unknown) (unknown) (no date) (unknown) (unknown) POC Strep scre en Group A Today J02.9 - Acute pharyngitis, unspecified (units unknown) (unknown) (unknown) (no date) (unknown) (unknown) PSYCH: judgeme nt normal, orientation normal, affect/mood normal and memory (units unknown) (unknown) (unknown) (no date) (unknown) (unknown) Patient was se en at his local ER with probable diverticulitis in the left (units unknown) (unknown) (unknown) (no date) (unknown) (unknown) Patient: Kenn Moreno MR#: [id number] (units unknown) (unknown) (unknown) (no date) (unknown) (unknown) Plan (units unknown) (unknown) (unknown) (no date) (unknown) (unknown) Position Sitting (un its unknown) (unknown) (unknown) (no date) (unknown) (unknown) Pulse 75 (units unknown) (unknown) (unknown) (no date) (unknown) (unknown) Pulse Oximetry (%) 97 (units unknown) (unknown) (unknown) (no date) (unknown) (unknown) Pulse Source Monitor (units unknown) (unknown) (unknown) (no date) (unknown) (unknown) Reason For Visit (un its unknown) (unknown) (unknown) (no date) (unknown) (unknown) Respiration 16 (unit s unknown) (unknown) (unknown) (no date) (unknown) (unknown) Respiratory: Negative.? (units unknown) (unknown) (unknown) (no date) (unknown) (unknown) Results (units unknown) (unknown) (unknown) (no date) (unknown) (unknown) Review of Systems: ( units unknown) (unknown) (unknown) (no date) (unknown) (unknown) SKIN:? No rash es on face or arms. Patient does have thickened plaques over (units unknown) (unknown) (unknown) (no date) (unknown) (unknown) Signed By: <Electronically signed by Julian Lyn> (units unknown) (unknown) (unknown) (no date) (unknown) (unknown) Signed (units unknown) (unknown) (unknown) (no date) (unknown) (unknown) Smoking Status : Smoker, status unknown (units unknown) (unknown) (unknown) (no date) (unknown) (unknown) Social History (including tobacco use status). (units unknown) (unknown) (unknown) (no date) (unknown) (unknown) Strep Expirati on Last Edit by Linh Connelly LPN on 07/10/22 10:43 (units unknown) (unknown) (unknown) (no date) (unknown) (unknown) Strep Lot# Las t Edit by Linh Connelly LPN on 07/10/22 10:43 (units unknown) (unknown) (unknown) (no date) (unknown) (unknown) Subjective: (units unknown) (unknown) (unknown) (no date) (unknown) (unknown) Temp 98 F (units unknown) (unknown) (unknown) (no date) (unknown) (unknown) Temp Source Te mporal Artery Scan (units unknown) (unknown) (unknown) (no date) (unknown) (unknown) This note may have been all or partially generated using voice recognition (units unknown) (unknown) (unknown) (no date) (unknown) (unknown) Throat Culture Today J02.9 - Acute pharyngitis, unspecified (units unknown) (unknown) (unknown) (no date) (unknown) (unknown) Tobacco + Subs tance Use (units unknown) (unknown) (unknown) (no date) (unknown) (unknown) Tobacco Status (unit s unknown) (unknown) (unknown) (no date) (unknown) (unknown) 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 There may be (units unknown) (unknown) (unknown) (no date) (unknown) (unknown) Walk In Clinic Visit (units unknown) (unknown) (unknown) (no date) (unknown) (unknown) Weight 177 lb (units unknown) (unknown) (unknown) (no date) (unknown) (unknown) biopsy of some of the arm papules. (units unknown) (unknown) (unknown) (no date) (unknown) (unknown) bland, liquid diet at this point. (units unknown) (unknown) (unknown) (no date) (unknown) (unknown) concern for thrush ( units unknown) (unknown) (unknown) (no date) (unknown) (unknown) continues to h ave some lower abdominal pains. He was exposed to strep while he (units unknown) (unknown) (unknown) (no date) (unknown) (unknown) elbows. Advise d to see a trenching machine operator to discuss treatment options possible (units unknown) (unknown) (unknown) (no date) (unknown) (unknown) exudate.? Uvul a midline.? No post nasal drip. White coating on tongue and roof (units unknown) (unknown) (unknown) (no date) (unknown) (unknown) have occurred. If there are any questions, please contact the Medical Records (units unknown) (unknown) (unknown) (no date) (unknown) (unknown) his elbows and a few papules on his upper arm. (units unknown) (unknown) (unknown) (no date) (unknown) (unknown) lower quadrant . She was given a course of amoxicillin. He states that he (units unknown) (unknown) (unknown) (no date) (unknown) (unknown) may occur. Occasional wrong-word or 'sound-alike' substitutions may have (units unknown) (unknown) (unknown) (no date) (unknown) (unknown) mouth irritati on. No fevers, chills. Nonbloody stools. He is on relatively (units unknown) (unknown) (unknown) (no date) (unknown) (unknown) no apparent distress. (units unknown) (unknown) (unknown) (no date) (unknown) (unknown) normal (units unknown) (unknown) (unknown) (no date) (unknown) (unknown) nystatin (units unknown) (unknown) (unknown) (no date) (unknown) (unknown) occurred due t o the inherent limitations of voice recognition software. Please (units unknown) (unknown) (unknown) (no date) (unknown) (unknown) of mouth. (units unknown) (unknown) (unknown) (no date) (unknown) (unknown) patches on his tongue and the roof of his mouth. He still has a little bit of (units unknown) (unknown) (unknown) (no date) (unknown) (unknown) provider to di scuss further And if imaging or other workup as needed. (units unknown) (unknown) (unknown) (no date) (unknown) (unknown) pt arrives to [facility] c/o S/T and exposure from grandson a few days back, along with (units unknown) (unknown) (unknown) (no date) (unknown) (unknown) read the note carefully and recognize, using context, where these substitutions (units unknown) (unknown) (unknown) (no date) (unknown) (unknown) software. Alth ough every effort is made to edit content, personnel interviewer errors (units unknown) (unknown) (unknown) (no date) (unknown) (unknown) swish and swal low 5 mL PO TID 5 days 75 mL 1RF (units unknown) (unknown) (unknown) (no date) (unknown) (unknown) think his issu es are uncomplicated. Advised to follow up with his primary care (units unknown) (unknown) (unknown) (no date) (unknown) (unknown) typographical errors as a result. (units unknown) (unknown) (unknown) (no date) (unknown) (unknown) use antibiotic s for uncomplicated cases. Without the bleeding, fevers I do (units unknown) (unknown) (unknown) (no date) (unknown) (unknown) was on the amoxicillin. Since he finished antibiotics she is developed white (units unknown) (unknown) Result panel 4 (unknown) (no date) (unknown) (unknown) (no value) (units unknown) (unknown) (unknown) (no date) (unknown) (unknown) Light growth - Mixed resident kira (units unknown) (unknown) Result panel 5 (unknown) (no date) (unknown) (unknown) (no value) (units unknown) (unknown) (unknown) (no date) (unknown) (unknown) Moderate growt h - Mixed resident kira (units unknown) (unknown) Social History date description facility 2022-07-10 00:00 Smoker (finding) [facility] Vital Signs date measurement value units 2022-07-10 00:00 BMI 26.1 kg/m2 2022-07-10 00:00 BP_diastolic 80 mmHg 2022-07-10 00:00 BP_systolic 130 mmHg 2022-07-10 00:00 heart_rate 75 /min 2022-07-10 00:00 height_metric 175.26 cm 2022-07-10 00:00 height_standard 69 in 2022-07-10 00:00 o2_saturation 97 % 2022-07-10 00:00 respiration_rate 16 /min 2022-07-10 00:00 temperature_metric 36.67 C 2022-07-10 00:00 temperature_standard 98 F 2022-07-10 00:00 weight_metric 80.28 kg 2022-07-10 00:00 weight_standard 176.99 lb
[2022-07-12 14:39] LABS: BASOPHILS # (AUTO) 0.1 10^3/uL (0.0-0.1); BASOPHILS % (AUTO) 1.8 %; EOSINOPHILS # (AUTO) 0.2 10^3/uL (0.0-0.7); EOSINOPHILS % (AUTO) 2.9 %; HCT - HEMATOCRIT 43.5 % (42.0-52.0); HGB - HEMOGLOBIN 14.6 g/dL (14.0-18.0); LYMPHOCYTES # (AUTO) 1.2 10^3/uL (1.5-3.5); LYMPHOCYTES % (AUTO) 23.5 %; MEAN CORPUSCULAR HEMOGLOBIN 30.9 pg (27.0-31.0); MEAN CORPUSCULAR HGB CONC 33.6 g/dL (32.0-36.0); MEAN PLATELET VOLUME 9.1 fL (7.4-11.4); MONOCYTES # (AUTO) 0.5 10^3/uL (0.0-1.0); MONOCYTES % (AUTO) 8.8 %; NEUTROPHILS # (AUTO) 3.2 10^3/uL (1.5-6.6); NEUTROPHILS % (AUTO) 62.8 %; PLT - PLATELET COUNT 224 10^3/uL (130-450); RED BLOOD COUNT 4.73 10^6/uL (4.70-6.10); RED CELL DISTRIBUTION WIDTH 12.3 % (12.0-15.0); WHITE BLOOD COUNT 5.1 x10^3/uL (4.8-10.8)
[2022-07-12] MEDS ORDERED: iohexoL-300 100 ML VIAL ONE (14:45)
[2022-07-12 14:57] LABS: ALBUMIN 4.4 g/dL (3.2-5.5); ALBUMIN/GLOBULIN RATIO 1.3 (1.0-2.2); BILIRUBIN,TOTAL 0.8 mg/dL (0.2-1.0); CALCIUM 9.3 mg/dL (8.5-10.3); CREATININE 0.7 mg/dL (0.6-1.2); POTASSIUM 3.9 mmol/L (3.5-5.0); TOTAL PROTEIN 7.8 g/dL (6.7-8.2)
--- NOTE | 2022-07-12 15:06 | ED Physician Documentation ---
PD HPI ABD PAIN - Stated complaint Stated Complaint: ABD PX - Chief complaint Chief Complaint: Abd Pain - History obtained from History obtained from: Patient - History of Present Illness Timing - onset: How many weeks ago (2) Timing - duration: Weeks (2) Pain level max: 3 Pain level now: 3 Quality: Aching, Pain Location: Suprapubic Radiation: No: Chest, , Lower back, Left flank, Left shoulder, Right flank, Right shoulder, Upper back Improved by: Other (Nothing) Worsened by: Eating Associated symptoms: No: Fever, Nausea, Vomiting, Hematemesis, Diarrhea, Constipation, Melena, Hematochezia, Dysuria, Hematuria, Chest pain, Dizzy - Additional information Additional information: Patient is a 66-year-old male who presents to the emergency department with lower abdominal pain. Ongoing for the past 2 weeks. He states he was diagnosed with diverticulitis clinically about 2 weeks ago. He states he was placed on amoxicillin, took it for 1 week and was feeling better but is now having recurrent symptoms. No fevers. No chills. No diarrhea or constipation. A review of his records shows that it was Augmentin he was prescribed. Patient does state that he had a colonoscopy last year that showed diverticulosis. Review of Systems Constitutional: denies: Fever, Chills Respiratory: denies: Cough GI: denies: Nausea, Vomiting, Diarrhea Skin: denies: Rash Musculoskeletal: denies: Neck pain, Back pain Neurologic: denies: Headache PD PAST MEDICAL HISTORY - Past Medical History Past Medical History: Yes Cardiovascular: None Respiratory: None Neuro: None Endocrine/Autoimmune: None - Past Surgical History Past Surgical History: Yes General: Colonoscopy - Present Medications Home Medications: Ambulatory Orders Medication Instructions Recorded Confirmed Multivitamin [Multiple Vitamins] 1 tab ORAL DAILY 02/02/18 03/22/22 Aspirin EC [Ecotrin] 81 mg PO DAILY 10/27/20 03/22/22 Ferrous Sulfate 325 mg PO DAILY 10/27/20 03/22/22 Cholecalciferol (Vitamin D3) 50,000 unit PO DAILY 03/22/22 03/22/22 [Vitamin D] Magnesium Chloride [Magnesium] 64 mg PO DAILY 03/22/22 03/22/22 Potassium Chloride [Klor-Con 8] 8 meq PO DAILY 03/22/22 03/22/22 Ciprofloxacin HCl [Cipro] 500 mg PO BID #20 tablet 07/12/22 metroNIDAZOLE [Flagyl] 500 mg PO TID 10 Days #30 tablet 07/12/22 - Allergies Allergies/Adverse Reactions: Allergies Allergy/AdvReac Type Severity Reaction Status Date / Time No Known Drug Allergies Allergy Verified 07/12/22 14:09 - Living Situation Living Arrangement: reports: At home - Social History Does the pt smoke?: No Smoking Status: Never smoker Does the pt drink ETOH?: Yes Does the pt have substance abuse?: No - Immunizations Immunizations are current?: Yes PD ED PE NORMAL - Vitals Vital signs reviewed: Yes - General General: Alert and oriented X 3, No acute distress - HEENT HEENT: Moist mucous membranes - Neck Neck: Supple, no meningeal sign - Cardiac Cardiac: RRR, Strong equal pulses - Respiratory Respiratory: No respiratory distress, Clear bilaterally - Abdomen Abdomen: Soft, Non tender, Non distended - Derm Derm: Warm and dry - Extremities Extremities: No edema, No calf tenderness / cord - Neuro Neuro: Alert and oriented X 3 - Psych Psych: Normal mood, Normal affect Results - Vitals Vitals: Vital Signs - 24 hr 07/12/22 07/12/22 14:10 16:08 Temperature 36.5 C Heart Rate 76 78 Respiratory 16 16 Rate Blood Pressure 137/84 H 126/79 O2 Saturation 98 100 Oxygen O2 Source Room air - Labs Labs: Laboratory Tests 07/12/22 07/12/22 07/12/22 14:27 14:27 15:52 WBC 5.1 RBC 4.73 Hgb 14.6 Hct 43.5 MCV 92.0 MCH 30.9 MCHC 33.6 RDW 12.3 Plt Count 224 MPV 9.1 Neut # (Auto) 3.2 Lymph # (Auto) 1.2 L [place] # (Auto) 0.5 Eos # (Auto) 0.2 Baso # (Auto) 0.1 Absolute Nucleated RBC 0.00 Nucleated RBC % 0.0 Sodium 140 Potassium 3.9 Chloride 105 Carbon Dioxide 27 Anion Gap 8.0 BUN 10 Creatinine 0.7 Estimated GFR (MDRD) 113 Glucose 150 H Calcium 9.3 Total Bilirubin 0.8 AST 31 ALT 25 Alkaline Phosphatase 48 Total Protein 7.8 Albumin 4.4 Globulin 3.4 Albumin/Globulin Ratio 1.3 Lipase 33 Urine Color YELLOW Urine Clarity CLEAR Urine pH 7.5 Ur Specific [place] <=1.005 Urine Protein NEGATIVE Urine Glucose (UA) NEGATIVE Urine Ketones NEGATIVE Urine Occult Blood NEGATIVE Urine Nitrite NEGATIVE Urine Bilirubin NEGATIVE Urine Urobilinogen 0.2 (NORMAL) Ur Leukocyte Esterase NEGATIVE Ur Microscopic Review NOT INDICATED Urine Culture Comments NOT INDICATED - Rads (name of study) CT abdomen pelvis Relevant Findings:: Final report received, See rad report PD Medical Decision Making - ED course Complexity details: reviewed results, re-evaluated patient, considered differential, d/w patient, d/w family ED course: 66-year-old male with a mild acute diverticulitis. We will change him from the Augmentin that he was on to Cipro Flagyl and extend the time course. No evidence of abscess, perforation. We did discuss treating without antibiotics, but as he has already failed to improve, he would like to try a different antibiotic. I think this is reasonable in his case. Patient counseled regarding risks including C. difficile colitis. Patient counseled regarding signs and symptoms for which I believe and urgent re-evaluation would be necessary. Patient with good understanding of and agreement to plan and is comfortable going home at this time This document was made in part using voice recognition software. While efforts are made to proofread this document, sound alike and grammatical errors may occur. Departure - Departure Disposition: 01 Home, Self Care Clinical Impression: Diverticulitis Condition: Good Instructions: ED Diverticulitis Follow-Up: your,doctor in 1 week for recheck [Other] Prescriptions: Ciprofloxacin HCl [Cipro] 500 mg PO BID #20 tablet metroNIDAZOLE [Flagyl] 500 mg PO TID 10 Days #30 tablet Comments: Please take all antibiotics until gone. Please follow-up with your doctor for further care. Your CT scan shows mild diverticulitis. There is no evidence of perforation or abscess. Drink plenty of water. Return if you worsen. Discharge Date/Time: 07/12/22 16:09
--- NOTE | 2022-07-12 15:49 | CT Report ---
PROCEDURE: ABDOMEN/PELVIS W INDICATIONS: LLQ abd pain CONTRAST: 100mL Omni 300 TECHNIQUE: After the administration of IV contrast, 5 mm thick sections acquired from the diaphragms to the symp hysis. 5 mm thick coronal and sagittal reformats were acquired. For radiation dose reduction, the f ollowing was used: automated exposure control, adjustment of mA and/or kV according to patient size. COMPARISON: 10/27/2020 FINDINGS: Image quality: Excellent. Lung bases and heart: Unremarkable. Liver: No solid mass. Gallbladder and biliary tree: Gallbladder is within normal limits. No gross biliary ductal dilatation . Spleen: No splenomegaly. Pancreas: No pancreatic ductal dilation. Adrenals: No adrenal nodule. Kidneys and ureters: No hydronephrosis. No renal cystic lesion which requires follow up. No solid mas s. Bowel and peritoneum: There is no bowel obstruction. No gastric or small bowel wall thickening. Appen parris is visualized and is within normal limits. Extensive colonic diverticulosis is seen. There is sug gestion of colonic wall thickening and pericolonic fat stranding involving distal descending colon/pr oximal sigmoid colon. No abscess collection. No free fluid of free air. Lymph nodes: No central or retroperitoneal adenopathy. Vessels: No infrarenal aortic aneurysm. PELVIS Reproductive organs: Unremarkable. Bladder: No abnormal wall thickening, accounting for underdistension. Pelvic lymph nodes: No pelvic adenopathy by size criteria. Bones: No aggressive osseous abnormality. Other: No significant ventral or inguinal hernia. IMPRESSION: 1. Finding is concerning for early acute diverticulitis involving distal descending colon/proximal si gmoid colon in left lower quadrant. No signs of perforation. No abscess collection. No free fluid of free air. 2. Normal appendix. No bowel obstruction. No other area of abnormal bowel wall thickening. Extensive colonic diverticulosis. Reviewed by: Jaspal Barragan MD on 07/12/2022 3:48 PM PDT Approved by: Jaspal Barragan MD on 07/12/2022 3:48 PM PDT Station ID: [id number]
[2022-07-12 15:58] LABS: BILIRUBIN,URINE NEGATIVE (NEGATIVE); GLUCOSE, URINE (UA) NEGATIVE (NEGATIVE); KETONES,URINE (UA) NEGATIVE (NEGATIVE); LEUKOCYTE ESTERASE, URINE NEGATIVE (NEGATIVE); NITRITE,URINE NEGATIVE (NEGATIVE); OCCULT BLOOD,URINE NEGATIVE (NEGATIVE); PH,URINE 7.5 PH (5.0-7.5); PROTEIN,URINE NEGATIVE (NEGATIVE); UROBILINOGEN,URINE 0.2 (NORMAL) E.U./dL (NORMAL)
[2022-07-12 16:00] LABS: CLARITY,URINE CLEAR (CLEAR)
[2022-07-12 16:11] VITALS: BP 126/79
[2022-07-12] MEDS ORDERED: iohexoL-300 100 ML VIAL IVP ONE (16:48)
== END 2022-07-12 16:09 | disposition home or self-care (01) ==
LOC: ED 14:07
DX: K57.92 Diverticulitis of intestine, part unspecified, without perforation or abscess without bleeding (principal); Z79.82 Long term (current) use of aspirin; Z79.899 Other long term (current) drug therapy
CPT/HCPCS: 36415; 74177; 80053; 81003; 83690; 85025; 99283; 99284; Q9967; 81001; 87086

== ENCOUNTER 2022-08-12 07:23 | Outpatient (CLI) | payer MEDICARE, OTHER ==
[2022-08-12 07:42] LABS: BASOPHILS # (AUTO) 0.1 10^3/uL (0.0-0.1); EOSINOPHILS # (AUTO) 0.3 10^3/uL (0.0-0.7); EOSINOPHILS % (AUTO) 4.1 %; HCT - HEMATOCRIT 44.1 % (42.0-52.0); HGB - HEMOGLOBIN 14.8 g/dL (14.0-18.0); LYMPHOCYTES # (AUTO) 1.9 10^3/uL (1.5-3.5); LYMPHOCYTES % (AUTO) 30.6 %; MEAN CORPUSCULAR HEMOGLOBIN 30.5 pg (27.0-31.0); MEAN CORPUSCULAR HGB CONC 33.6 g/dL (32.0-36.0); MEAN CORPUSCULAR VOLUME 90.9 fL (80.0-94.0); MEAN PLATELET VOLUME 9.1 fL (7.4-11.4); MONOCYTES # (AUTO) 0.6 10^3/uL (0.0-1.0); MONOCYTES % (AUTO) 10.2 %; NEUTROPHILS # (AUTO) 3.3 10^3/uL (1.5-6.6); NEUTROPHILS % (AUTO) 53.9 %; PLT - PLATELET COUNT 224 10^3/uL (130-450); RED BLOOD COUNT 4.85 10^6/uL (4.70-6.10); RED CELL DISTRIBUTION WIDTH 12.7 % (12.0-15.0); WHITE BLOOD COUNT 6.2 x10^3/uL (4.8-10.8)
[2022-08-12 08:01] LABS: ALBUMIN 4.3 g/dL (3.2-5.5); ALBUMIN/GLOBULIN RATIO 1.3 (1.0-2.2); ALKALINE PHOSPHATASE 50 IU/L (42-121); ALT ALANINE AMINOTRANSFERASE 24 IU/L (10-60); AST ASPARTATE AMINOTRANSFERASE 25 IU/L (10-42); BILIRUBIN,TOTAL 0.9 mg/dL (0.2-1.0); BUN - BLOOD UREA NITROGEN 15 mg/dL (6-20); CALCIUM 8.9 mg/dL (8.5-10.3); CARBON DIOXIDE - CO2 27 mmol/L (21-32); CHLORIDE 103 mmol/L (101-111); CHOL/HDL RATIO 3.5 (<5.0); CHOLESTEROL 194 mg/dL; CREATININE 0.8 mg/dL (0.6-1.2); GFR - MDRD 97 (>89); GLUCOSE 109 mg/dL (70-100); HDL CHOLESTEROL 56 mg/dL; LDL CHOLESTEROL,CALCULATED 120 mg/dL; LDL/HDL RATIO 2.1 (<3.6); POTASSIUM 3.9 mmol/L (3.5-5.0); SODIUM 138 mmol/L (135-145); TOTAL PROTEIN 7.5 g/dL (6.7-8.2); TRIGLYCERIDES 92 mg/dL; VLDL CHOLESTEROL 18 mg/dL
== END 2022-08-12 07:24 | disposition home or self-care (01) ==
LOC: LAB 07:23
PROVIDERS: ATTEND Nurse Practitioner Family
DX: Z00.00 Encounter for general adult medical examination without abnormal findings (principal); Z13.220 Encounter for screening for lipoid disorders; Z12.5 Encounter for screening for malignant neoplasm of prostate
CPT/HCPCS: 36415; 80053; 80061; 85025; G0103; 83721; 84153